=== PATIENT | female | born 1975 | race Caucasian/White ===

== ENCOUNTER 2022-05-06 08:18 | Emergency (ER) | payer MEDICARE, MEDICAID ==
[~2022-05-06] VITALS: Ht 165.1 cm; Wt 72.7 kg
[~2022-05-06 08:18] MED LIST: ALPR-624 PO; DOXE150C PO; QUET-1 PO
[2022-05-06 08:29] VITALS: BP 120/81
[2022-05-06] MEDS ORDERED: clonazePAM 1mg tablet PO ONE (09:15)
[2022-05-06] MEDS ORDERED: [UNRECOGNIZED DRUG - CODE] PO (09:20)
[2022-05-06] MEDS ORDERED: CLON-527 PO (09:20)
== END 2022-05-06 10:01 | disposition home or self-care (01) ==
LOC: ER 08:19
DX: F41.9 Anxiety disorder, unspecified (principal); F32.A Depression, unspecified; Z88.8 Allergy status to other drugs, medicaments and biological substances; Z79.899 Other long term (current) drug therapy; Z88.5 Allergy status to narcotic agent; Z90.49 Acquired absence of other specified parts of digestive tract
CPT/HCPCS: 99283

== ENCOUNTER 2025-02-03 07:49 | Emergency (ER) | payer MEDICARE, MEDICAID ==
[~2025-02-03] VITALS: Ht 165.1 cm; Wt 81.0 kg
[~2025-02-03 07:49] MED LIST changes: +CLON1TAB2 PO; +[UNRECOGNIZED DRUG - CODE] PO
[2025-02-03 08:34] VITALS: BP 118/86; PULSE 113; TEMP 97.8; O2SAT 99
--- NOTE | 2025-02-03 08:37 | Physician Documentation ---
History of Present Illness ~ Chief Complaint: Mechanical Fall Stated Complaint: FALL Time Seen by MD: 08:37 Primary Medical Doctor: None HPI This 49-year-old female presents to the emergency department primarily for right rib pain. She reports that four days ago, her dog pulled on the leash, causing her to fall. She does also have some bruises to the lower extremities and scabs to the knees. She denies being on blood thinners. She notes that it is difficult to take a deep breath and cough. Tetanus within 5 Years?: No Medication Reconciliation Allergies: Coded Allergies: lorazepam (Verified Allergy, Intermediate, blisters and rash, 02/03/25) morphine (Verified Allergy, Intermediate, blisters and rash, 02/03/25) Scheduled Alprazolam* (Xanax*), 1 MG PO TID, (Reported) Alprazolam* (Xanax*), 1 MG PO Q8H Clonazepam (Klonopin), 1 TAB PO Q12H PRN Doxepin Hcl (Doxepin Hcl), 150 MG PO BID, (Reported) Doxepin Hcl (Doxepin Hcl), 100 MG PO DAILY Naproxen (Naproxen), 1 TAB PO Q12H Quetiapine Fumarate* (Seroquel*), 4 TAB PO BID, (Reported) Scheduled PRN Hydrocodone Bit/Acetaminophen (Hydrocodon-Acetaminophen 5-325), 1 TAB PO TID PRN PRN for pain Past Medical History Past Medical History: Anxiety, Bipolar Past Surgical History: noncontributory Other Past Surgical History: colonoscopy Alcohol Use: None Lives In: Home Review of Systems ROS As stated above in the HPI, otherwise all systems are reviewed and negative. Physical Exam Vital Signs: Temperature: 97.8, Source: Temporal, Heart Rate: 115, Respiratory Rate: 18, BP: 146/88, Pulse Oximetry: 99, Weight: 81.000 Oxygen Flow Rate: 0 Physical Exam General: Alert, no apparent distress. Neck: Full range of motion. Respiratory: Lungs clear, no respiratory distress. Chest: No accessory muscle use. TTP without crepitus right ribs lateral to breast. Cardiovascular: Regular rate and rhythm, no murmurs. Gastrointestinal: Soft, nontender, nondistended. Bowels sounds present. Extremities: Normal range of motion, no deformity. Neurologic: Oriented x4. Psychiatric: Normal mood and affect. Skin: Normal color, warm and dry. No edema. Scattered bruises BLE. Small scabs atop both knees. Progress Results/Orders Results/Orders Completed Orders - LIZ ALVARADO NP Hydromorphone 0.5 Mg/0.5 Ml/Pf (Dilaudid (02/03/25 08:45) Medications Received in ER Medications (Trade) Dose Ordered Sig/Willow Route PRN Reason Start Time Stop Time Status Last Admin Dose Admin (Dilaudid inj.) 0.5 mg ONCE ONCE IM 02/03/25 08:45 02/03/25 08:46 DC 02/03/25 09:00 0.5 MG Vital Signs 02/03/25 02/03/25 02/03/25 02/03/25 07:51 08:34 08:34 09:00 Temp 97.8 97.8 Pulse 115 113 Resp 18 12 12 15 B/P (MAP) 146/88 118/86 (97) Pulse Ox 99 99 O2 Flow Rate 0 0 EKG/XRAY/CT/US/VASC/MRI Chest X-Ray : Additional Comments DIAGNOSTIC RADIOLOGY Patient: FELIX ROSE Medical Record: [id number] [facility] : 1975, Age: 49 Sex: Female Location: ER Patient Status: REG ER Service Date/Time: 02/03/25755 Ordering Physician: DESHAWN CASTLE MD Exam: JEAN RIBS WITH PA CHEST FRONTAL CHEST AND bilateral RIB RADIOGRAPHS HISTORY: rib pain after fall, worse on right TECHNIQUE: Multiple views of the bilateral ribs and frontal radiographs of the chest COMPARISON: None FINDINGS: The trachea is midline. The cardiac silhouette and mediastinum are within normal limits. No pneumothorax, pleural effusions, or consolidation. Acute fractures of the right 5th and 6th ribs. Chronic appearing deformity of the right clavicle. No displaced left rib fracture. Impression: 1. Acute fractures of the right 5th and 6th ribs. Electronically Signed by:MICHAEL BARR MD Date & Time: 02/03/25924 Dictated by: MICHAEL BARR MD Dictation date and time: 02/03/25822 Primary Care Provider: EMERGENCY, DEPARTMENT cc: DESHAWN CASTLE MD ~ Medical Decision Making Differential Dx:Considerations: Include: Closed head injury, Cardiac injury, Fracture(s), Intraabdominal injury, Pneumothorax, Cerebral contusion, Pulmonary contusion, Spine injury, Tracheal injury, Urological injury, Vascular injury, Abrasion(s), Contusion(s), Foreign body(s), Hematoma(s), Laceration(s), Encephalopathy Additional Comment 49-year-old female who presented after a fall caused by walking her dog when he pulled. She was found to have acute fractures of ribs five and six on the right. She was treated in the emergency department with 0.5 mg of intramuscular Dilaudid to good effect, and noted significant pain relief with this. She will be sent home with hydrocodone 12/29/2024, naproxen 500 mg, and Phenergan as need ed. She reports that opioids make her sick. She is to follow up with the primary care provider within a week. She is given instructions to return if she is worse. She is cautioned that she must take care to cough and deep breathe to prevent pneumonia. Departure Time of Disposition: 09:25 Disposition: 01 HOME / SELF CARE / HOMELESS Impression: Primary Impression: Rib pain Condition: Stable Discharge Instructions: Fall Prevention in the Home, Adult, [id number], Rib Fracture Additional Instructions: You have two rib fractures on the right: Ribs #5 and #6. You will be sent with pain medication. Take naproxen 500 mg twice a day. If this is ineffective, also take the hydrocodone as prescribed. Be sure to brace the sore area and take frequent deep breath and cough to prevent pneumonia. Return if worse such as with fever and shortness of Breath. Follow up with your primary care provider within the next week. Referrals: EMERGENCY,DEPARTMENT (PCP) Prescriptions Promethazine HCl (Promethazine HCl) 25 Mg Tablet 1 TAB PO Q6H PRN PRN for nausea/vomiting for 5 Days, #20 TAB Prov: LIZ ALVARADO NP 02/03/25 Hydrocodone Bit/Acetaminophen (Hydrocodon-Acetaminophen 5-325) 5 Mg-325 Mg Tablet 1 TAB PO TID PRN PRN for pain for 5 Days, #15 TAB Prov: LIZ ALVARADO NP 02/03/25 Naproxen (Naproxen) 500 Mg Tablet 1 TAB PO Q12H, #20 TAB Prov: LIZ ALVARADO NP 02/03/25 Education Educated: Patient Educated regarding: diagnosis, treatment, prognosis, need for follow up Signature Scribe Signature: no scribe Attestation: The note accurately reflects work and decisions made by me.Liz Vivas NP 02/03/25 08:45 LIZ ALVARADO NP Feb 03, 2025 08:37
[2025-02-03 09:00] VITALS: RESP 15
[2025-02-03] MEDS: HYDROmorphone inj. 0.5 MG/0.5 ML DISP.SYRIN IM ONE (09:00)
[2025-02-03] MEDS ORDERED: HYDR-3964 PO ×2 (09:27→09:28)
[2025-02-03] MEDS ORDERED: NAPR-56 PO (09:27)
--- NOTE | 2025-02-03 09:27 | RADIOLOGY REPORT ---
FRONTAL CHEST AND bilateral RIB RADIOGRAPHS HISTORY: rib pain after fall, worse on right TECHNIQUE: Multiple views of the bilateral ribs and frontal radiographs of the chest COMPARISON: None FINDINGS: The trachea is midline. The cardiac silhouette and mediastinum are within normal limits. No pneumothorax, pleural effusions, or consolidation. Acute fractures of the right 5th and 6th ribs. Chronic appearing deformity of the right clavicle. No displaced left rib fracture. Impression: 1. Acute fractures of the right 5th and 6th ribs.
[2025-02-03] MEDS ORDERED: PROM25TA14 PO (09:33)
== END 2025-02-03 09:59 | disposition home or self-care (01) ==
LOC: ER 07:51
DX: R07.81 Pleurodynia (principal); F31.9 Bipolar disorder, unspecified; F41.9 Anxiety disorder, unspecified; Z88.5 Allergy status to narcotic agent
CPT/HCPCS: 71111; 96372; 99283; J1171

== ENCOUNTER 2025-07-18 10:31 | Emergency (ER) | payer MEDICARE, MEDICAID ==
[~2025-07-18] VITALS: Ht 165.1 cm; Wt 78.0 kg
[2025-07-18 10:41] VITALS: TEMP 97.7
--- NOTE | 2025-07-18 11:05 | ELECTROCARDIOGRAPH REPORT ---
[facility] Test Date: 2025-07-18 Test Time: 10:36:09 Pat Name: FELIX ROSE Department: EMERGENCY ROOM Patient ID: [id number] Room: Gender: F Sorting Supervisor: ZANE : 1975 Requested By: GUEVARA ALLISON Order Number: [id number] Reading MD: Dr. FREDERICK Navarro Measurements Intervals [place] Rate: 130 P: 69 MN: 85 QRS: 51 QRSD: 76 T: 68 QT: 297 QTc: 437 Interpretive Statements Sinus tachycardia Atrial premature complex Borderline T wave abnormalities Baseline wander in lead(s) V2 Electronically Signed On 07-18-2025 16:53:[address] FREDERICK Navarro Please click the below link to view image of tracing.
--- NOTE | 2025-07-18 11:19 | RADIOLOGY REPORT ---
CHEST RADIOGRAPH Indication: chest discomfort Technique: Single frontal view of the chest was obtained COMPARISON: DI JEAN RIBS WITH PA CHEST on DOS: 02/03/25 FINDINGS: Lines and Tubes: None Lungs: Clear. Calcified granuloma in the right mid lung measures 0.4 cm. Pleura: No effusion. No pneumothorax. Cardiomediastinal contours: Unremarkable Bones: Unremarkable IMPRESSION: No acute disease.
[2025-07-18 11:22] LABS: MEAN PLATELET VOLUME 7.5 FL (7.4-10.4); RED CELL DISTRIBUTION WIDTH 13.1 % (11.5-14.5)
--- NOTE | 2025-07-18 11:27 | Physician Documentation ---
History of Present Illness ~ Chief Complaint: Irregular Heartbeat Stated Complaint: IRREG EKG Time Seen by MD: 10:58 Primary Medical Doctor: RON JOYCE This is a very pleasant 49-year-old female with a self-reported history of severe anxiety, persistent tachycardia, per patient her heart rate never dropped below 100, is presenting today at the request of the nurse practitioner from [facility]. She states that she went for her regular yearly checkup and when the patient was noted to have tachycardia, the nurse practitioner inquired with the she ever has been EKG. The patient stated that she has not, EKG was obtained, and patient was told to to go to the emergency department immediately. At the time of my examination the patient reports headache, sensation of anxiety, chest tightness, no shortness a breath. Denies any nausea, vomiting, diarrhea, abdominal pain. She does not smoke, does not drink, does not do drugs. The EKG from outside facility was not provided. Medication Reconciliation Allergies: Coded Allergies: lorazepam (Verified Allergy, Intermediate, blisters and rash, 07/18/25) morphine (Verified Allergy, Intermediate, blisters and rash, 07/18/25) Scheduled Alprazolam* (Xanax*), 1 MG PO TID, (Reported) Alprazolam* (Xanax*), 1 MG PO Q8H Clonazepam (Klonopin), 1 TAB PO Q12H PRN Doxepin Hcl (Doxepin Hcl), 150 MG PO BID, (Reported) Doxepin Hcl (Doxepin Hcl), 100 MG PO DAILY Quetiapine Fumarate* (Seroquel*), 4 TAB PO BID, (Reported) Past Medical History Past Medical History: Anxiety, Bipolar Past Surgical History: noncontributory Other Past Surgical History: colonoscopy Alcohol Use: None Lives In: Home Review of Systems ROS 10 point review of systems was performed and unless noted above in HPI is negative for acute process/complaint. Physical Exam Vital Signs: Temperature: 97.7, Source: Oral, Heart Rate: 113, Respiratory Rate: 14, BP: 113/83, Pulse Oximetry: 98, Weight: 78.000 Oxygen Flow Rate: 0 Physical Exam GENERAL: Awake, alert, oriented, GCS 15, no apparent distress, non-toxic appearing, answers questions, follows commands appropriately. Examined in bed 11. HEENT: Atraumatic, normocephalic, pupils equal, extraocular muscles intact, sclerae anicteric, mucus membranes moist, oropharynx is clear, no stridor. NECK: supple, full active range of motion, trachea midline, no thyromegaly, no lymphadenopathy, no JVD. CARDIOVASCULAR: Tachycardic and regular rate/rhythm, no murmurs/gallops/rubs, Pulses are 2+ in all extremities and symmetric. Capillary refill less than 2 seconds. PULMONARY: Nonlabored, good air movement ,no respiratory distress, speaking in full sentences, clear to auscultation bilaterally, no wheezing, no ronchi, no rales, no accessory muscle use. GASTROINTESTINAL: Soft, non-tender, non-distended, normal active bowel sounds, no organomegaly, no pulsatile masses, no CVA tenderness. NEUROLOGIC: Lucid with normal mental status. Normal facial symmetry. Moves all extremities symmetrically and with purpose. No truncal ataxia. Speech is fluid without evidence of dysarthria or aphasia, no focal deficits appreciated. MUSCULOSKELETAL: There is full range of motion of all extremities. There is no joint pain or joint swelling or joint erythema. There is no muscle pain or tenderness or swelling. EXTREMITIES: warm, well-perfused, no cyanosis, no clubbing, no edema, no acute deformities. Skin: warm, dry, no rashes or lesions, no jaundice, no petechiae orpurpura. No ecchymosis. PSYCHIATRIC: Normal affect, normal insight, normal concentration. Focused exam: [] Progress Results/Orders Results/Orders Orders - GUEVARA ALLISON DO Chest,Single View (07/18/25 11:02) Completed Orders - GUEVARA ALLISON DO Electrocardiogram (07/18/25 11:02) Cbc/Diff (07/18/25 11:02) D-Dimer (07/18/25 11:02) Chest,Single View (07/18/25 11:02) PBNP (07/18/25 11:02) MG (07/18/25 11:02) TSH (07/18/25 11:02) Free T4 (07/18/25 11:02) CMP (07/18/25 11:02) Hs Troponin I W Calculations (07/18/25 11:02) Hs Troponin I W Calculations (07/18/25 13:02) Clonazepam 1mg Tablet (Klonopin 1mg Tabl (07/18/25 11:05) Acetaminophen 325mg Tablet (Tylenol Tabl (07/18/25 11:05) Medications Received in ER Medications (Trade) Dose Ordered Sig/Willow Route PRN Reason Start Time Stop Time Status Last Admin Dose Admin (klonoPIN 1mg tablet) 1 mg ONCE ONCE PO 07/18/25 11:05 07/18/25 11:06 DC 07/18/25 11:14 1 MG (Tylenol tablet) 650 mg ONCE ONCE PO 07/18/25 11:05 07/18/25 11:06 DC 07/18/25 11:15 650 MG Vital Signs 07/18/25 07/18/25 07/18/25 07/18/25 10:41 11:07 12:13 12:13 Temp 97.7 Pulse 127 113 105 Resp 16 14 15 15 B/P (MAP) 118/97 113/83 (93) 109/87 (94) Pulse Ox 99 98 98 O2 Flow Rate 0 Laboratory Tests Test 07/18/25 10:40 07/18/25 13:11 White Blood Count 9.5 Red Blood Count 5.22 Hemoglobin 17.2 H Hematocrit 49.4 H Mean Corpuscular Volume 94.7 Mean Corpuscular Hemoglobin 32.9 H Mean Corpuscular Hemoglobin Concent 34.8 Red Cell Distribution Width 13.1 Platelet Count 395 Mean Platelet Volume 7.5 Neutrophils (%) (Auto) 71.0 Lymphocytes (%) (Auto) 20.0 L Monocytes (%) (Auto) 7.8 Eosinophils (%) (Auto) 0.7 Basophils (%) (Auto) 0.5 Neutrophils # (Auto) 6.7 Lymphocytes # (Auto) 1.9 Monocytes # (Auto) 0.7 Eosinophils # (Auto) 0.1 Basophils # (Auto) 0.0 CBC Comment D-Dimer 0.21 D-Dimer Comment Sodium Level 138 Potassium Level 4.1 Chloride Level 102 Carbon Dioxide Level 26.8 Anion Gap 9 Blood Urea Nitrogen 11 Creatinine 0.83 Estimated GFR/1.73 m2 73 BUN/Creatinine Ratio 13.3 Glucose Level 98 Calcium Level 9.5 Magnesium Level 2.1 Total Bilirubin 0.4 Aspartate Amino Transf (AST/SGOT) 17 Alanine Aminotransferase (ALT/SGPT) 9 L Alkaline Phosphatase 81 Troponin I High Sensitivity < 4 L < 4 L Troponin I High Sens Percent Delta Troponin I Hi Sens Absolute Change Pro-B-Type Natriuretic Peptide < 30 Total Protein 8.8 H Albumin 4.4 Globulin 4.4 H Albumin/Globulin Ratio 1.0 L Thyroid Stimulating Hormone (TSH) 1.09 Free Thyroxine 1.41 H Chemistry Comments EKG/XRAY/CT/US/VASC/MRI EKG : Additional Comment EKG was obtained and interpreted by myself showing sinus tachycardic, rate of 130, normal [place] interval, narrow QRS, no QT prolongation, normal axis, no STEMI. Occasional PAC noted. Medical Decision Making Additional information obtaine: old records Findings Facility Status: ED Holds, RME process The plan was discussed with the patient, who demonstrates clear understanding of the plan and is in agreement with the plan unless otherwise noted in the chart. All questions have been answered, all concerns were addressed unless otherwise documented. I was available throughout their ED stay for frequent reassessment and questions. Differential Diagnoses (considered and possible or likely): [Idiopathic sinus tachycardia, PAC, PVC, less likely atrial fibrillation, less likely atrial flutter, highly unlikely to be malignant arrhythmia ventricular origin. Thyrotoxicosis has been considerably. PE is unlikely in the setting but D-dimer will be obtained. Unlikely to be ACS, unlikely CHF/high-output heart failure. Unlikely alcohol intoxication or alcohol withdrawal as the patient does not drink.] ??Differential Diagnoses (considered and unlikely, not requiring evaluation currently): [See above] MDM Data Please see HPI for the following: Independent Historians and external Records Review. Historian: [Patient] Independent Historians: ?[Record review] Medication Management: [Reviewed medication list] Social History and determinants: [Reviewed] Please see the body of the note for the following: Any independent interpretations of ECG, imaging studies. All vitals signs/haemodynamics, ordered tests were independently reviewed and interpreted by myself. Nursing triage complaint and vitals reviewed, additional nursing notes were reviewed as available and I agree unless otherwise noted or documented in contradiction in the chart Vital Signs: Independently reviewed Labs: Independently interpreted Imaging: Independently interpreted Old Medical Records: Independently reviewed, see HPI for relevant summary and information Pulse Oximetry: [99%] interpreted as [normal on room air] by me [[employer]: Tachycardic Rate, Regular rhythm, no ectopy, sinus tachyca rdia. reviewed and interpreted by me] Additionally notably showing: [Hemodynamics reviewed. The patient is not febrile, initially tachycardic, improved with the palliation of symptoms, no evidence of hypotension. She is back to baseline tachycardia palpation. Laboratory studies are unremarkable except for hemo concentration. Coagulation panel shows negative D-dimer. Chemistry is unremarkable. Troponin is negative twice. Slightly elevated thyroid noted, concerning for subclinical hypothyroidism. Chest x-ray was obtained showing no acute cardiopulmonary disease.] Tests considered but not ordered include: [CTA has been considerably does not appear to be necessary given negative D-dimer] Social Determinants of Health Impact: Patient was evaluated in [facility] [place] to healthcare due to below par ratio of patient to medical providers. [] Comorbid Conditions Impacting Present Evaluation and Care/Treatment: [History of tachycardia] Management Discussions with other Healthcare Providers: [None] Treatment and Disposition Medication Management (Given or considered): [Benzodiazepine]. See EMR for details Consideration for Hospitalization/Escalation/Deescalation of Care: Admission for observation has been considered, [however the patient is able to tolerate p.o., their symptoms are controlled, they are able to rely on oral medications, and their chief complaint/diagnosis can be managed on outpatient basis.] ?ED Course:?[Initially I was concerned the patient is in potential benzodiazepine withdrawal as she is out of her clonazepam. Medication was provided. She responded very well. She is feeling better. Unremarkable laboratory workup.] ?Shared decision making:?[Patient is hemodynamically stable for discharge home with follow with their primary care provider. [ ] Specific and cautious return precautions provided and discussed with full understanding. Any incidental findings were also discussed and follow up recommendations given. [] All questio ns answered. Patient/family were able to verbalize back return precautions. Patient/family agree to plan. Copies of imaging and laboratory studies were provided.] Code status:?FULL Please see the full Electronic Medical Record for full details of nursing documentation, medications list, other records of complete past medical history and conditions, vital signs, laboratory studies, and any radiologic study interpretations by radiologists. Portions of this note were completed using [employer] dictation software and as a result there may exist minor errors in spelling. I have reviewed elements of past family and social history and agree as included in note. Differential Dx:Considerations: Include: atrial dysrhythmia, atrial fibrillation, atrial flutter, MAT, PACs, PSVT, sinus tachycardia, WPW, PVCs; Unlikely: 2nd degree AVB-type 1, 2nd degree AVB-type 2, 3rd degree AV block, torsades de pointes, ventricular fibrillation, ventricular tachycardia Differential Dx:Considerations: Include anxiety/panic attack; Unlikely digoxin toxicity; Include electrolyte disorder, Include heart failure, Include hyp erthyroidism, Include hyperventilation; Unlikely hypoxia, Unlikely pacemaker malfunction; Include pulmonary embolus; Unlikely renal failure Departure Disposition: 01 HOME / SELF CARE / HOMELESS Impression: Primary Impression: Inappropriate sinus tachycardia Additional Impressions: Benzodiazepine withdrawal Hyperthyroidism Condition: Improved Discharge Instructions: Hyperthyroidism, Sinus Tachycardia Referrals: NO PRIMARY CARE PROVIDER (PCP) Education Educated: Patient Educated regarding: diagnosis, treatment, prognosis, need for follow up Signature Scribe Signature: No scribe Attestation: Date: Jul 18, 2025 Time: 11:26 This note accurately reflects clinical decisions, work performed by myself, DO KEEGAN Moon NICHOLAS M DO Jul 18, 2025 11:27
[2025-07-18 11:33] LABS: CREATININE 0.83 MG/DL (0.40-0.90); TOTAL CARBON DIOXIDE 26.8 MMOL/L (24-32); eCRCL 74 ML/MIN; eGFR 73 ML/MIN
[2025-07-18 11:42] LABS: PRO BRAIN NATRIURETIC PEPTIDE < 30 PG/ML (0-125)
[2025-07-18 14:44] VITALS: BP 110/82; PULSE 105; RESP 17; O2SAT 99
== END 2025-07-18 14:49 | disposition home or self-care (01) ==
LOC: ER 10:32
DX: I47.11 Inappropriate sinus tachycardia, so stated (principal); F13.239 Sedative, hypnotic or anxiolytic dependence with withdrawal, unspecified; E05.90 Thyrotoxicosis, unspecified without thyrotoxic crisis or storm; F41.9 Anxiety disorder, unspecified; F31.9 Bipolar disorder, unspecified; Z88.5 Allergy status to narcotic agent; Z79.899 Other long term (current) drug therapy
CPT/HCPCS: 36415; 71045; 80053; 83735; 83880; 84439; 84443; 84484; 85025; 85379; 93005; 99285